=== PATIENT | male | born 2000 | race Caucasian/White ===

== ENCOUNTER 2022-05-02 15:08 | Emergency (ER) | payer MEDICAID, SELFPAY ==
[2022-05-02 15:09] VITALS: BP 118/79; PULSE 94; RESP 16; TEMP 36.4; O2SAT 99; BMI 39.7
[2022-05-02 15:25] VITALS: RESP 18
--- NOTE | 2022-05-02 15:29 | EX.ED.VIS.HA ---
HPI History of Present Illness Chief Complaint: Headache Narrative Narrative: 22-year-old male presents with pain on his scalp that he has had since Thursday, 2 days ago. He denies any fevers or chills, no photophobia or phonophobia. But today when he awoke he states he felt lightheaded and dizzy. He states the pain is on the outside of his head, when he touches his scalp on the right side on the top of his head, and when he raises his eyebrow it feels tight and he has pain. Also when he moves his neck he has pain on the top of his head. He denies any injury. No history of migraines. No significant past medical history. He took 2 ibuprofen with minimal relief of his pain. PFSH PFSH Home Medications oxycodone-acetaminophen 5 mg-325 mg tablet 1 - 2 tab PO Q4H PRN PRN Pain #20 tabs 08/27/16 [Rx Last Taken Unknown] doxycycline hyclate 100 mg capsule 100 mg PO BID #10 caps 05/02/22 [Rx Last Taken Unknown] Allergy/AdvReac Type Severity Reaction Status Date / Time No Known Allergies Allergy Verified 05/02/22 15:08 Social History Smoking Status: Never smoker ROS ROS ED ROS Narrative Constitutional: No fever, no chills. HEENT: No sore throat. No neck pain. No loss of vision. No rhinorrhea. Cardiovascular: No chest pain. No palpitations. No pedal edema. Respiratory: No cough, no shortness of breath. Abdominal: No abdominal pain. No nausea. No vomiting. Genitourinary: No dysuria. No hematuria. Musculoskeletal: No myalgias. No arthralgias. Neurologic: No headaches. Positive dizziness. Positive lightheadedness. Skin: No rash. No change in color. Right-sided scalp pain on top of head, worse with palpation and touching. Psychiatric: No depression. No anxiety. EXAM Physical Exam Narrative Exam Narrative: Afebrile. Vital signs noted. HEENT: Normocephalic. Atraumatic. PERRL, EOMI. Neck soft and supple. No point tenderness or step off. There appears to be an inflamed hair follicle on the top of his head on the right side of his scalp, no fluctuance. Cardiovascular: Regular rate and rhythm. No murmurs, rubs, or gallops appreciated. Respiratory: No tachypnea. Lungs clear to auscultation bilaterally. Gastrointestinal: Abdomen soft, nontender, with normoactive bowel sounds. No rebound or guarding. Neurological: Awake. Alert. Nonfocal, nonlateralizing. Ambulatory in ED. Skin: No rash. Normal color. No pallor. Musculoskeletal: No pedal edema. Full range of motion extremities. Const Vital Signs: 05/02/22 15:09 Temperature 97.6 F L Temperature Source Temporal Pulse Rate 94 Respiratory Rate 16 Blood Pressure 118/79 Blood Pressure Mean 92 Pulse Ox 99 Oxygen Delivery Method Room Air MDM MDM MDM Narrative Medical decision making narrative: The pain seems to be emanating from this inflamed hair follicle. I do feel that the patient would benefit from a short course of therapy of antibiotic, he will continue his ibuprofen. He is written for doxycycline to take for the next 5 days. He will apply warm compresses to the area. I feel he can be discharged safely home with follow-up. Return instructions to the emergency department were reviewed. Disposition is discharged home in stable condition. Discharge Plan Triage Chief Complaint: Headache ED Provider: Erich Stanton Dx/Rx/DC Orders Clinical Impression: Scalp pain, Inflamed hair follicle Prescriptions: New doxycycline hyclate 100 mg capsule 100 mg PO BID Qty: 10 0RF No Action oxycodone-acetaminophen 1 TABLET tablet 1 - 2 tab PO Q4H PRN PRN (Reason: Pain) Qty: 20 0RF Stand Alone Forms: ED Work / School Excuse Primary Care Provider: NOT,DEFINED Referrals: Marcy Hernandez DO [Med Staff - Active Staff] - 1 Week if not improving NOT,DEFINED [Primary Care Provider] - Disposition Disposition: Home, Self Care
== END 2022-05-02 15:36 | disposition home or self-care (01) ==
LOC: ED 15:32
PROVIDERS: Emergency Provider Emergency Medicine; Visit Provider Emergency Medicine
DX: L66.2 Folliculitis decalvans (principal); R51.9 Headache, unspecified; Z79.1 Long term (current) use of non-steroidal anti-inflammatories (NSAID)
CPT/HCPCS: 99282

== ENCOUNTER 2022-07-19 21:37 | Emergency (ER) | payer MEDICAID, SELFPAY ==
[2022-07-19 21:38] VITALS: BP 171/86; PULSE 108; RESP 18; TEMP 36.8; O2SAT 99; BMI 41.0
--- NOTE | 2022-07-19 21:50 | EKG12_ITS ---
Test Reason : DIZZINESS Blood Pressure : / mmHG Vent. Rate : 080 BPM Atrial Rate : 080 BPM P-R Int : 130 ms QRS Dur : 084 ms QT Int : 350 ms P-R-T Axes : 046 061 035 degrees QTc Int : 403 ms Sinus rhythm with marked sinus arrhythmia Otherwise normal ECG Confirmed by FEROZ VILLARREAL, DION ([id number]), editor dictionary LESLIE SUAREZ ([id number]) on 07/22/2022 12:37:56 PM Referred By: Confirmed By:DION REDMAN MD
--- NOTE | 2022-07-19 21:51 | EDS_ITS ---
HPI History of Present Illness Chief Complaint: Dizziness Narrative Narrative: 22-year-old male presenting with we believe he is a panic attack. He states he has a long history of this but has never been diagnosed with anxiety or panic disorder. He states that since he was young his mother did not want to address the issue because he did not think she could afford it. He has had Medicaid throughout his childhood. He had regular pediatric care. Since he lives with his grandmother now he has not sought out any health care. He states that tonight he was arguing with his older brother and got worked up. He states he decided to smoke a vape pen which made him more anxious. He started to feel like he was having palpitations. He is not having chest pain. He felt like maybe he was a little short of breath while this was happening but does not feel short of breath anymore. No fever, chills, cough. No nausea/vomiting. He reports he has no significant medical history. PFSH PFS Home Medications hydroxyzine pamoate 25 mg capsule (Vistaril) 25 mg PO TID PRN anxiety #20 caps 07/19/22 [Rx Last Taken Unknown] Allergy/AdvReac Type Severity Reaction Status Date / Time No Known Allergies Allergy Verified 07/19/22 21:38 Social History Smoking Status: Never smoker ROS ROS ED Constitutional Constitutional ED: Denies chills or fever(s) Eyes Eyes: Denies change in vision or diplopia ENT ENT ED: Denies rhinorrhea or sore throat Cardiovascular Cardiovascular: Reports palpitations and racing heartbeat Respiratory/Chest Respiratory/Chest: Denies cough or dyspnea Gastrointestinal Gastrointestinal: Denies abdominal pain Genitourinary Genitourinary ED: Denies dysuria or hematuria Musculoskeletal Musculoskeletal: Denies arthralgias or back pain Integumentary Denies abscess or Abrasions Neurologic Neurologic: Denies headache(s) or paresthesias Psychiatric Psychiatric: Reports anxiety; Denies suicidal ideation or suicidal thoughts EXAM Physical Exam Const Vital Signs: 07/19/22 21:38 07/19/22 22:01 Temperature 98.3 F Temperature Source Temporal Pulse Rate 108 H Pulse Rate [Lying] 85 Pulse Rate [Sitting (for 1 minute prior to obtaining)] 93 Pulse Rate [Standing (for 1 minute prior to obtaining)] 101 H Respiratory Rate 18 Blood Pressure 171/86 H Blood Pressure [Lying] 131/59 H Blood Pressure [Sitting (for 1 minute prior to obtaining)] 131/60 H Blood Pressure [Standing (for 1 minute prior to obtaining)] 137/61 H Blood Pressure Mean 114 Blood Pressure Mean [Lying] 83 Blood Pressure Mean [Sitting (for 1 minute prior to obtaining)] 83 Blood Pressure Mean [Standing (for 1 minute prior to obtaining)] 86 Pulse Ox 99 Oxygen Delivery Method Room Air Positive well nourished General Appearance ED: NAD; Negative for pallor HEENT Reports moist mucous membranes Eyes PERRL and EOMs intact bilaterally Chest Wall inspection of chest normal and palpation of chest normal Resp normal respiratory effort and clear to auscultation bilaterally Auscultation: Negative for rales, rhonchi or wheezes Cardio regular rate and regular rhythm GI normal to inspection, nondistended, normoactive bowel sounds Extremity normal to inspection Neuro oriented x3 and CN's II-XII intact bilaterally Sensorium / Orientation: alert Motor Exam: strength 5/5 throughout Psych mental status grossly normal Skin no rashes or lesions noted and no wounds General Skin Exam: Negative for jaundice or pallor MDM MDM MDM Narrative Medical decision making narrative: Presenting with concern for anxiety/panic disorder. He has had a longstanding history of this but never formally been diagnosed. He has been lost to follow- up as an adult because he has not made an effort to see a physician. He states that he does have severe anxiety and stays home most of the time. In addition to this he got an altercation verbally with his big brother barbara and then smoked marijuana which made him more anxious. I offered him Vistaril but he declines. Because of the palpitations I did perform an EKG which shows a normal sinus rhythm with a ventricular rate of 80 bpm without sign of ischemia. Orthostatic vital signs are normal. Vital signs are stable he is afebrile. I do not think he needs further work-up or imaging. Patient will be discharged home with follow-up. Impression: 1. Marijuana abuse 2. Anxiety 3. Palpitations Lab Data Attestation: I reviewed the patient's lab results. Discharge Plan Triage Chief Complaint: Dizziness Other Complaint: Anxiety Chest Other ED Provider: Bret Dias Dx/Rx/DC Orders Instructions: ED Panic Attack Prescriptions: New hydroxyzine pamoate [Vistaril] 25 mg capsule 25 mg PO TID PRN (Reason: anxiety) Qty: 20 0RF Primary Care Provider: Care Physician,No Primary Referrals: Megan Hendricks MD [Med Staff - Fruit Har[employer] Machine Operator] - 3-5 Days Care Physician,No Primary [Primary Care Provider] - Disposition Disposition: Home, Self Care
[2022-07-19 22:01] VITALS: BP 131/59; BP 131/60; BP 137/61; PULSE 101; PULSE 85; PULSE 93
== END 2022-07-19 22:21 | disposition home or self-care (01) ==
PROVIDERS: Emergency Provider Student in an Organized Health Care Education/Training Program; Visit Provider Student in an Organized Health Care Education/Training Program
DX: F41.9 Anxiety disorder, unspecified (principal); R42 Dizziness and giddiness; F12.10 Cannabis abuse, uncomplicated
CPT/HCPCS: 93005; 99282